=== PATIENT | female | born 1975 | race Caucasian/White ===

== ENCOUNTER 2018-12-07 11:58 | Emergency (ER) | payer OTHER ==
[~2018-12-07] VITALS: Ht 162.6 cm; Wt 117.5 kg
[2018-12-07 12:06] VITALS: Ht 162.6 cm; Wt 117.5 kg
[2018-12-07 12:48] LABS: microscopic required? NO
[2018-12-07 12:50] LABS: BASOPHIL % 1.3 % (0-2); PLATELET COUNT 349 x10^3mcL (130-400)
[2018-12-07 13:04] LABS: urine erythrocyte NEGATIVE (NEGATIVE)
[2018-12-07 13:11] LABS: CALCIUM 8.6 mg/dL (8.5-10.1); CARBON DIOXIDE 25.4 mmol/L (21-32); CHLORIDE SERUM 104 mmol/L (98-107); CREATININE SERUM 0.6 mg/dL (0.6-1.0); GFR1 > 60 mL/min; GLUCOSE SERUM 154 mg/dL (74-106); POTASSIUM SERUM 3.7 mmol/L (3.5-5.1); SODIUM SERUM 139 mmol/L (136-145)
[2018-12-07 13:13] LABS: AMPHETAMINE QUAL UR NONE DETECTED (See below)
[2018-12-07 13:14] LABS: T3 TOTAL 1.16 ng/mL
[2018-12-07 13:16] LABS: ALKALINE PHOSPHATASE 99 U/L (46-116); ALT/SGPT 17 U/L (14-59); AST/SGOT 12 U/L (15-37); BILIRUBIN TOTAL 0.2 mg/dL (0.20-1.00); CHOLESTEROL 156 mg/dL (<200); CHOLESTEROL/HDL RATIO 4.1; FREE T4 0.9 ng/dL (0.76-1.46); FREE THYROXINE INDEX 2.4 ug/dL (1.4-4.5); HDL CHOLESTEROL 38 mg/dL (40-60); LIPASE 72 IU/L (73-393); T4(THYROXINE) 7.9 ug/dL (4.7-13.3); TOTAL PROTEIN, SERUM 7.5 g/dL (6.4-8.2); TRIGLYCERIDES 181 mg/dL (<150)
[2018-12-07 13:23] LABS: ALBUMIN 3.2 g/dL (3.4-5.0)
[2018-12-07 14:55] VITALS: BP 110/64
== END 2018-12-07 14:55 | disposition home or self-care (01) ==
LOC: ED 11:58
PROVIDERS: Specialist
DX: R07.89 Other chest pain (principal); R00.2 Palpitations; E66.9 Obesity, unspecified; E11.9 Type 2 diabetes mellitus without complications; E78.00 Pure hypercholesterolemia, unspecified
CPT/HCPCS: 36415; 83880; 84439; Q0092